=== PATIENT | male | born 1955 | race African-American/Black ===

== ENCOUNTER 2022-05-13 08:14 | Inpatient (IN) | payer MEDICARE ==
[~2022-05-13] VITALS: Ht 167.6 cm; Wt 65.8 kg
[2022-05-13 09:00] LABS: ABG BASE EXCESS -4.6 mmol/L; ABG HCO3 18.3 mmol/L; ABG PCO2 28.9 mmHg (35.0-45.0); ABG PH 7.419 (7.350-7.450); ABG SITE RIGHT RADIAL; COHb 0.9 % (0.5-1.5); MetHb 0.2 % (0.0-1.5); O2Hb 84.1 % (94.0-97.0); VENT MODE NC
[2022-05-13] MEDS ORDERED: levoFLOXacin 750MG/D5W 150 ML IV ONE ×2 (09:15→09:17)
[2022-05-13] MEDS ORDERED: IV NORMAL SALINE 1000 ML BAG IV ONE (09:45)
[2022-05-13 09:47] LABS: ALANINE AMINOTRANSFERASE 33 U/L (16-63); ALKALINE PHOSPHATASE 99 U/L (50-136); ASPARTATE AMINOTRANSFERASE 45 U/L (15-37); BILIRUBIN,DIRECT 0.9 mg/dL (0.0-0.2); BILIRUBIN,TOTAL 1.8 mg/dL (0.2-1.0); CARBON DIOXIDE 24 mmol/L (21-32); CHLORIDE 95 mmol/L (98-107); CREATININE 3.2 mg/dL (0.6-1.3); GLUCOSE 164 mg/dL (74-106); POTASSIUM 3.9 mmol/L (3.5-5.1); TOTAL PROTEIN, SERUM 7.6 g/dL (6.4-8.2); UREA NITROGEN, BLOOD 55 mg/dL (7-18)
[2022-05-13 09:54] LABS: HEMATOCRIT 45.2 % (36.7-47.1); MEAN CORPUSCULAR HEMOGLOBIN 25.6 uug (23.8-33.4); MEAN CORPUSCULAR VOLUME 79.2 fL (73.0-96.2); PLATELET COUNT (AUTO) 343 K/uL (152-348)
[2022-05-13 12:00] VITALS: BP 124/89
[2022-05-13] MEDS ORDERED: IPRATROPIUM BROMIDE 0.5 MG/2.5 ML NEBU NEB PRN (12:15)
[2022-05-13] MEDS ORDERED: ALBUTEROL SULFATE 2.5 MG/ 0.5 ML NEBU NEB PRN (12:15)
[2022-05-13] MEDS ORDERED: ZOLPIDEM 5 MG TABLET PO PRN (12:15)
[2022-05-13] MEDS ORDERED: HEPARIN SODIUM,PORCINE 5,000 UNITS/ML VIAL SQ SCH (12:30)
[2022-05-13] MEDS: PANTOPRAZOLE SODIUM 40 MG VIAL IV SCH (12:53)
[2022-05-13] MEDS: CEFEPIME HCL 1 G in IV DEXTROSE 5% 50 ML IV SCH (12:55)
[2022-05-13] MEDS: NICOTINE 7 MG/24HR PATCH TD SCH (12:55)
[2022-05-13] MEDS: ACETAMINOPHEN 325 MG TABLET PO PRN (13:11)
[2022-05-13] MEDS: AZITHROMYCIN IV 500 MG in IV DEXTROSE 5% 250 ML IV SCH (13:15)
[2022-05-13] MEDS: IV NS 1000 ML 1,000 ML IV PRN (13:40)
[2022-05-13] MEDS ORDERED: CEFEPIME HCL 1 G in IV DEXTROSE 5% 50 ML IV SCH (14:00)
[2022-05-13] MEDS ORDERED: FAMO-132 PO (14:14)
[2022-05-13] MEDS ORDERED: HYDR25TA4 PO (14:14)
[2022-05-13 16:00] VITALS: BP 117/69
[2022-05-13] MEDS: RIVAROXABAN 15 MG TABLET PO SCH (17:36)
[2022-05-13 20:00] VITALS: BP 111/75
[2022-05-14] VITALS (13 sets, daily range): BP systolic 110–141; BP diastolic 78–98
[2022-05-14] MEDS: CEFEPIME HCL 1 G in IV DEXTROSE 5% 50 ML IV SCH (01:02)
[2022-05-14] MEDS: IV NS 1000 ML 1,000 ML IV PRN (04:38)
[2022-05-14 06:08] LABS: ABG BASE EXCESS -6.7 mmol/L; ABG HCO3 16.3 mmol/L; ABG PCO2 27.3 mmHg (35.0-45.0); ABG PH 7.395 (7.350-7.450); ABG PO2 69.2 mmHg (75.0-100.0); ABG SITE LEFT RADIAL; ABG TOTAL HEMOGLOBIN 15.6 G/dL (13.5-18.0); COHb 0.6 % (0.5-1.5); MetHb 0.2 % (0.0-1.5); O2Hb 93.1 % (94.0-97.0)
[2022-05-14 07:14] LABS: CREATININE 3.7 mg/dL (0.6-1.3); MAGNESIUM 2.3 mg/dL (1.8-2.4); PHOSPHOROUS 6.2 mg/dL (2.5-4.9); POTASSIUM 4.1 mmol/L (3.5-5.1)
[2022-05-14 07:20] LABS: BILIRUBIN,DIRECT 1.4 mg/dL (0.0-0.2); BILIRUBIN,TOTAL 1.9 mg/dL (0.2-1.0); TOTAL PROTEIN, SERUM 7.1 g/dL (6.4-8.2)
[2022-05-14 07:21] LABS: THYROID STIMULATING HORMONE 0.451 mIU/mL (0.358-3.740)
[2022-05-14] MEDS: PANTOPRAZOLE SODIUM 40 MG VIAL IV SCH (08:14)
[2022-05-14] MEDS: NICOTINE 7 MG/24HR PATCH TD SCH (08:14)
[2022-05-14 08:21] LABS: MEAN CORPUSCULAR HEMOGLOBIN 25.6 uug (23.8-33.4); PLATELET COUNT (AUTO) 345 K/uL (152-348)
[2022-05-14] MEDS ORDERED: FUROSEMIDE 20 MG/2 ML VIAL IV SCH ×3 (09:30)
[2022-05-14] MEDS: CEFEPIME HCL 2 G in IV DEXTROSE 5% 100 ML IV SCH (11:11)
[2022-05-14] MEDS: AZITHROMYCIN IV 500 MG in IV DEXTROSE 5% 250 ML IV SCH (13:57)
[2022-05-14 14:49] LABS: *BILIRUBIN,URIN 1+ (NEGATIVE); *BLOOD, URINE 1+ (NEGATIVE); *CLARITY,URINE TURBID (CLEAR); *COLOR,URINE Brown (YELLOW); *KETONES,URINE TRACE (NEGATIVE); *UROBILINOGEN,URINE 0.2 E.U./dl (NORMAL); LEUKOCYTE ESTERASE ,URINE TRACE (NEGATIVE); NITRITE, URINE NEGATIVE (NEGATIVE); UGLUCOSE NEGATIVE (NEGATIVE)
[2022-05-14 14:57] LABS: *CREATININE,URINE 220.2 mg/dL (30-125)
[2022-05-14] MEDS ORDERED: FUROSEMIDE 40 MG/4 ML VIAL IV ONE ×3 (15:00→21:00)
[2022-05-14] MEDS ORDERED: methylPREDNISolone SOD SUCC 125 MG/2 ML VIAL IV ONE ×2 (15:00→17:45)
[2022-05-14 15:07] LABS: ABG HCO3 13.4 mmol/L; ABG PCO2 24.4 mmHg (35.0-45.0); ABG PH 7.357 (7.350-7.450); ABG PO2 71.2 mmHg (75.0-100.0); ABG SITE LEFT RADIAL; ABG TOTAL HEMOGLOBIN 14.9 G/dL (13.5-18.0); COHb 0.7 % (0.5-1.5); MetHb 0.3 % (0.0-1.5)
[2022-05-14 16:30] LABS: BACTERIA,URINE MA /HPF (NONE SEEN)
[2022-05-14 16:31] LABS: SQUAMOUS EPITHELIAL CELL,UR MANY /HPF (NONE SEEN)
[2022-05-14] MEDS: ALBUMIN HUMAN 25% 100 ML IV SCH ×2 (17:32→18:00)
[2022-05-14] MEDS ORDERED: VANCOMYCIN IV 1,000 MG in IV DEXTROSE 5% 250 ML IV ONE (18:00)
[2022-05-14] MEDS: RIVAROXABAN 15 MG TABLET PO SCH (18:24)
[2022-05-15] VITALS (24 sets, daily range): BP systolic 102–155; BP diastolic 45–100
[2022-05-15] MEDS: ALBUMIN HUMAN 25% 100 ML IV SCH ×2 (01:05→06:40)
[2022-05-15 05:07] LABS: HEMATOCRIT 41.6 % (36.7-47.1); MEAN CORPUSCULAR VOLUME 78.2 fL (73.0-96.2); PLATELET COUNT (AUTO) 178 K/uL (152-348)
[2022-05-15 05:23] LABS: MAGNESIUM 2.7 mg/dL (1.8-2.4); PHOSPHOROUS 6.9 mg/dL (2.5-4.9); POTASSIUM 4.4 mmol/L (3.5-5.1)
[2022-05-15] MEDS ORDERED: DILTIAZEM HCL 25 MG IV IV ONE (05:30)
[2022-05-15] MEDS ORDERED: AMIODARONE HCL IV 150 MG in IV DEXTROSE 5% 100 ML IV ONE (05:30)
[2022-05-15] MEDS ORDERED: AMIODARONE HCL 150 MG/3 ML VIAL IV ONE ×2 (05:46→05:47)
[2022-05-15] MEDS: AMIODARONE HCL IV 450 MG in IV DEXTROSE 5% 250 ML IV PRN ×2 (06:02→11:59)
[2022-05-15 06:04] LABS: BAND % (MANUAL) 2 % (0-10); LYMPHOCYTES % (MANUAL) 8 % (20-40); MONOCYTES % (MANUAL) 16 % (2-10)
[2022-05-15 06:05] LABS: NEUTROPHILS % (MANUAL) 74 % (42-75)
[2022-05-15 08:30] LABS: ABG BASE EXCESS -10.2 mmol/L; ABG HCO3 13.3 mmol/L; ABG PCO2 24.1 mmHg (35.0-45.0); ABG PO2 128.1 mmHg (75.0-100.0); ABG SITE LEFT RADIAL; ABG TOTAL HEMOGLOBIN 13.5 G/dL (13.5-18.0); COHb 0.2 % (0.5-1.5); MetHb 0.3 % (0.0-1.5); VENT MODE BIPAP
[2022-05-15] MEDS: DILTIAZEM HCL IV 125 MG in IV NORMAL SALINE 100 ML IV PRN (08:40)
[2022-05-15] MEDS: NICOTINE 7 MG/24HR PATCH TD SCH (09:00)
[2022-05-15] MEDS ORDERED: PANTOPRAZOLE SODIUM 40 MG TABLET.DR PO SCH (09:00)
[2022-05-15] MEDS ORDERED: VANCOMYCIN IV 500 MG in IV DEXTROSE 5% 100 ML IV PRN ×2 (11:45→14:45)
[2022-05-15] MEDS: CEFEPIME HCL 2 G in IV DEXTROSE 5% 100 ML IV SCH (11:54)
[2022-05-15] MEDS: AZITHROMYCIN IV 500 MG in IV DEXTROSE 5% 250 ML IV SCH (14:54)
[2022-05-15] MEDS ORDERED: VANCOMYCIN IV 500 MG in IV DEXTROSE 5% 100 ML IV ONE (16:00)
[2022-05-15] MEDS: NEPRO (VANILLA) 237 ML CAN PO SCH (16:54)
[2022-05-15] MEDS: RIVAROXABAN 15 MG TABLET PO SCH (17:06)
[2022-05-16] VITALS (24 sets, daily range): BP systolic 102–136; BP diastolic 58–88
[2022-05-16] MEDS: AMIODARONE HCL IV 450 MG in IV DEXTROSE 5% 250 ML IV PRN ×2
[2022-05-16 05:07] LABS: HEMATOCRIT 40.4 % (36.7-47.1); MEAN CORPUSCULAR HEMOGLOBIN 25.2 uug (23.8-33.4); MEAN CORPUSCULAR VOLUME 76.6 fL (73.0-96.2); PLATELET COUNT (AUTO) 83 K/uL (152-348)
[2022-05-16 05:40] LABS: BAND % (MANUAL) 6 % (0-10); LYMPHOCYTES % (MANUAL) 4 % (20-40); MONOCYTES % (MANUAL) 4 % (2-10); NEUTROPHILS % (MANUAL) 86 % (42-75)
[2022-05-16] MEDS: DILTIAZEM HCL IV 125 MG in IV NORMAL SALINE 100 ML IV PRN (08:03)
[2022-05-16 08:12] LABS: ABG BASE EXCESS -3.7 mmol/L; ABG HCO3 18.1 mmol/L; ABG PCO2 25.5 mmHg (35.0-45.0); ABG PO2 53.4 mmHg (75.0-100.0); ABG SITE LEFT RADIAL; ABG TOTAL HEMOGLOBIN 14.5 G/dL (13.5-18.0); COHb 0.7 % (0.5-1.5); MetHb 0.3 % (0.0-1.5); O2Hb 86.7 % (94.0-97.0); VENT MODE BIPAP; VT, ABG 489 mL
[2022-05-16] MEDS: NICOTINE 7 MG/24HR PATCH TD SCH (08:54)
[2022-05-16] MEDS: PANTOPRAZOLE SODIUM 40 MG VIAL IV SCH (08:54)
[2022-05-16] MEDS ORDERED: NOREPINEPHRINE BITARTRATE 8 MG in IV NORMAL SALINE 242 ML IV PRN ×2 (09:15→09:30)
[2022-05-16] MEDS ORDERED: NOREPINEPHRINE BITARTRATE 32 MG in IV NORMAL SALINE 218 ML IV PRN (09:30)
[2022-05-16] MEDS ORDERED: PROPOFOL 100 ML IV PRN (09:45)
[2022-05-16 11:10] LABS: POTASSIUM 4.7 mmol/L (3.5-5.1)
[2022-05-16 11:14] LABS: CREATININE 5.5 mg/dL (0.6-1.3); MAGNESIUM 3.1 mg/dL (1.8-2.4); PHOSPHOROUS 6.2 mg/dL (2.5-4.9)
[2022-05-16 11:54] LABS: ABG BASE EXCESS -8.8 mmol/L; ABG HCO3 18.6 mmol/L; ABG PCO2 45.6 mmHg (35.0-45.0); ABG PH 7.229 (7.350-7.450); ABG PO2 71.4 mmHg (75.0-100.0); ABG SITE LEFT RADIAL; ABG TOTAL HEMOGLOBIN 14.7 G/dL (13.5-18.0); COHb 0.4 % (0.5-1.5); MetHb 0.4 % (0.0-1.5); O2Hb 89.9 % (94.0-97.0); VENT MODE VENT - A/C; VT, ABG 500 mL
[2022-05-16] MEDS ORDERED: ROCURONIUM BROMIDE 50 MG/5 ML VIAL ONE ×2 (14:00)
[2022-05-16] MEDS: METRONIDAZOLE 500 MG TABLET PO SCH ×2 (14:00→22:20)
[2022-05-16] MEDS ORDERED: ETOMIDATE 20 MG/10 ML VIAL ONE ×2 (14:00)
[2022-05-16] MEDS ORDERED: EPINEPHRINE 1:10,000 1 MG/10 ML DISP.SYRIN IV ONE (14:19)
[2022-05-16] MEDS ORDERED: SODIUM BICARBONATE 8.4% 50 MEQ/50 ML DISP.SYRIN IV ONE (14:19)
[2022-05-16 14:29] LABS: VENT MODE, VBG VENT - A/C
[2022-05-16 14:39] LABS: HEMATOCRIT 44.2 % (36.7-47.1); MEAN CORPUSCULAR VOLUME 78.2 fL (73.0-96.2); PLATELET COUNT (AUTO) 76 K/uL (152-348)
[2022-05-16] MEDS ORDERED: IOHEXOL 350 100 ML INFUS..BTL ONE ×2 (14:43→14:45)
[2022-05-16] MEDS ORDERED: IV NORMAL SALINE 250 ML IV ONE (14:43)
[2022-05-16] MEDS ORDERED: SWABABLE VALVE TRANSFER SET EA MC ONE (14:43)
[2022-05-16 15:24] LABS: BILIRUBIN,DIRECT 1.5 mg/dL (0.0-0.2); BILIRUBIN,TOTAL 2.2 mg/dL (0.2-1.0); POTASSIUM 4.2 mmol/L (3.5-5.1); TOTAL PROTEIN, SERUM 7.4 g/dL (6.4-8.2)
[2022-05-16] MEDS: CEFEPIME HCL 2 G in IV DEXTROSE 5% 100 ML IV SCH (16:04)
[2022-05-16] MEDS: NEPRO (VANILLA) 237 ML CAN PO SCH ×2 (16:06)
[2022-05-16] MEDS: HEPARIN SODIUM,PORCINE 5,000 UNITS/ML VIAL SQ SCH ×2 (16:08→21:17)
[2022-05-16] MEDS: PROPOFOL 100 ML IV PRN (16:23)
[2022-05-16 17:58] LABS: BAND % (MANUAL) 6 % (0-10); LYMPHOCYTES % (MANUAL) 4 % (20-40); MONOCYTES % (MANUAL) 2 % (2-10); NEUTROPHILS % (MANUAL) 88 % (42-75)
[2022-05-16] MEDS ORDERED: VANCOMYCIN IV 1,000 MG in IV DEXTROSE 5% 250 ML IV SCH (18:00)
[2022-05-17] VITALS (23 sets, daily range): BP systolic 94–136; BP diastolic 49–70
[2022-05-17] MEDS: PROPOFOL 100 ML IV PRN ×4 (02:06→20:08)
[2022-05-17 04:54] LABS: HEMATOCRIT 37.9 % (36.7-47.1); MEAN CORPUSCULAR HEMOGLOBIN 24.8 uug (23.8-33.4); MEAN CORPUSCULAR VOLUME 76.5 fL (73.0-96.2); PLATELET COUNT (AUTO) 69 K/uL (152-348)
[2022-05-17 05:06] LABS: CREATININE 6.1 mg/dL (0.6-1.3); POTASSIUM 4.9 mmol/L (3.5-5.1)
[2022-05-17 05:11] LABS: MAGNESIUM 3.2 mg/dL (1.8-2.4); PHOSPHOROUS 7.5 mg/dL (2.5-4.9)
[2022-05-17 05:24] LABS: BAND % (MANUAL) 4 % (0-10); LYMPHOCYTES % (MANUAL) 4 % (20-40); MONOCYTES % (MANUAL) 3 % (2-10)
[2022-05-17 05:25] LABS: NEUTROPHILS % (MANUAL) 89 % (42-75)
[2022-05-17] MEDS: METRONIDAZOLE 500 MG TABLET PO SCH ×3 (06:03→21:13)
[2022-05-17 07:49] LABS: ABG BASE EXCESS -3.4 mmol/L; ABG HCO3 20.6 mmol/L; ABG PCO2 34.5 mmHg (35.0-45.0); ABG PH 7.393 (7.350-7.450); ABG SITE LEFT RADIAL; ABG TOTAL HEMOGLOBIN 16.6 G/dL (13.5-18.0); COHb 0.8 % (0.5-1.5); MetHb 0.4 % (0.0-1.5); O2Hb 90.1 % (94.0-97.0); VENT MODE VENT - A/C; VT, ABG 500 mL
[2022-05-17 08:07] LABS: HEPATITIS B SURFACE AG Negative (Negative)
[2022-05-17] MEDS: NICOTINE 7 MG/24HR PATCH TD SCH (08:07)
[2022-05-17] MEDS: PANTOPRAZOLE SODIUM 40 MG VIAL IV SCH (08:07)
[2022-05-17] MEDS: HEPARIN SODIUM,PORCINE 5,000 UNITS/ML VIAL SQ SCH ×2 (08:08→21:00)
[2022-05-17] MEDS: ACETAMINOPHEN 325 MG TABLET PO PRN ×2 (08:22→14:31)
[2022-05-17] MEDS: NEPRO (VANILLA) 237 ML CAN PO SCH ×2 (09:00→15:41)
[2022-05-17] MEDS ORDERED: NOREPINEPHRINE BITARTRATE 32 MG in IV NORMAL SALINE 218 ML IV PRN (09:45)
[2022-05-17 11:15] LABS: BILIRUBIN,DIRECT 0.6 mg/dL (0.0-0.2); BILIRUBIN,TOTAL 2.1 mg/dL (0.2-1.0); TOTAL PROTEIN, SERUM 6.4 g/dL (6.4-8.2)
[2022-05-17] MEDS ORDERED: LACTULOSE 20 G/30 ML LIQUID UDC PR SCH (13:00)
[2022-05-17] MEDS ORDERED: LACTULOSE 20 G/30 ML LIQUID UDC PO SCH (13:00)
[2022-05-17] MEDS ORDERED: VANCOMYCIN IV 500 MG in IV DEXTROSE 5% 100 ML IV ONE (13:00)
[2022-05-17] MEDS: AZITHROMYCIN IV 500 MG in IV DEXTROSE 5% 250 ML IV SCH (13:19)
[2022-05-17] MEDS: LACTULOSE 20 G/30 ML LIQUID UDC PO SCH ×2 (13:58→21:13)
[2022-05-17] MEDS: ALBUTEROL SULFATE 2.5 MG/ 0.5 ML NEBU NEB SCH ×2 (14:32→20:21)
[2022-05-17] MEDS: IPRATROPIUM BROMIDE 0.5 MG/2.5 ML NEBU NEB SCH ×2 (14:33→20:20)
[2022-05-17] MEDS: CEFEPIME HCL 2 G in IV DEXTROSE 5% 100 ML IV SCH (15:41)
[2022-05-18] VITALS (25 sets, daily range): BP systolic 96–115; BP diastolic 49–88
[2022-05-18] MEDS: ALBUTEROL SULFATE 2.5 MG/ 0.5 ML NEBU NEB SCH ×4 (00:31→19:48)
[2022-05-18] MEDS: IPRATROPIUM BROMIDE 0.5 MG/2.5 ML NEBU NEB SCH ×4 (00:31→19:48)
[2022-05-18] MEDS: PROPOFOL 100 ML IV PRN ×3 (02:50→16:47)
[2022-05-18 04:43] LABS: MEAN CORPUSCULAR HEMOGLOBIN 25.1 uug (23.8-33.4); PLATELET COUNT (AUTO) 80 K/uL (152-348)
[2022-05-18 04:45] LABS: HEMATOCRIT 38.4 % (36.7-47.1); MEAN CORPUSCULAR VOLUME 76.3 fL (73.0-96.2)
[2022-05-18 05:10] LABS: CREATININE 6.4 mg/dL (0.6-1.3); MAGNESIUM 3.1 mg/dL (1.8-2.4)
[2022-05-18 05:51] LABS: PHOSPHOROUS 12.3 mg/dL (2.5-4.9)
[2022-05-18 06:11] LABS: BAND % (MANUAL) 1 % (0-10); LYMPHOCYTES % (MANUAL) 10 % (20-40); MONOCYTES % (MANUAL) 2 % (2-10); NEUTROPHILS % (MANUAL) 87 % (42-75)
[2022-05-18] MEDS: LACTULOSE 20 G/30 ML LIQUID UDC PO SCH ×3 (06:18→21:50)
[2022-05-18] MEDS: METRONIDAZOLE 500 MG TABLET PO SCH ×3 (06:18→21:50)
[2022-05-18 06:34] LABS: ABG BASE EXCESS -4.5 mmol/L; ABG PCO2 45.9 mmHg (35.0-45.0); ABG PH 7.298 (7.350-7.450); ABG PO2 121.1 mmHg (75.0-100.0); ABG SITE RIGHT RADIAL; ABG TOTAL HEMOGLOBIN 12.9 G/dL (13.5-18.0); COHb 0.3 % (0.5-1.5); MetHb 0.4 % (0.0-1.5); O2Hb 97.4 % (94.0-97.0); VENT MODE VENT - A/C; VT, ABG 450 mL
[2022-05-18] MEDS: PANTOPRAZOLE SODIUM 40 MG VIAL IV SCH (08:39)
[2022-05-18] MEDS: NICOTINE 7 MG/24HR PATCH TD SCH (08:39)
[2022-05-18] MEDS: HEPARIN SODIUM,PORCINE 5,000 UNITS/ML VIAL SQ SCH (08:43)
[2022-05-18] MEDS: NEPRO (VANILLA) 237 ML CAN PO SCH ×2 (08:46→16:26)
[2022-05-18] MEDS: AZITHROMYCIN IV 500 MG in IV DEXTROSE 5% 250 ML IV SCH (11:52)
[2022-05-18] MEDS: CEFEPIME HCL 1 G in IV DEXTROSE 5% 50 ML IV SCH (16:26)
[2022-05-18] MEDS: PRECEDEX 400 MCG/100 ML BOTTLE 100 ML IV PRN (21:01)
[2022-05-18] MEDS: HYDROCODONE/APAP 10-325 MG TABLET PO PRN (21:50)
[2022-05-19] VITALS (24 sets, daily range): BP systolic 90–151; BP diastolic 47–96
[2022-05-19] MEDS: ALBUTEROL SULFATE 2.5 MG/ 0.5 ML NEBU NEB SCH ×4 (00:37→19:26)
[2022-05-19] MEDS: IPRATROPIUM BROMIDE 0.5 MG/2.5 ML NEBU NEB SCH ×4 (00:37→19:26)
[2022-05-19] MEDS: PRECEDEX 400 MCG/100 ML BOTTLE 100 ML IV PRN (03:20)
[2022-05-19] MEDS: LACTULOSE 20 G/30 ML LIQUID UDC PO SCH ×3 (05:21→21:31)
[2022-05-19] MEDS: METRONIDAZOLE 500 MG TABLET PO SCH ×2 (05:21→14:03)
[2022-05-19 08:09] LABS: ABG BASE EXCESS 0.7 mmol/L; ABG HCO3 24.4 mmol/L; ABG PCO2 36.4 mmHg (35.0-45.0); ABG PH 7.445 (7.350-7.450); ABG PO2 205.9 mmHg (75.0-100.0); ABG SITE RIGHT RADIAL; ABG TOTAL HEMOGLOBIN 12.4 G/dL (13.5-18.0); COHb 0.3 % (0.5-1.5); MetHb 0.2 % (0.0-1.5); O2Hb 98.9 % (94.0-97.0)
[2022-05-19] MEDS: NICOTINE 7 MG/24HR PATCH TD SCH (08:48)
[2022-05-19] MEDS: NEPRO (VANILLA) 237 ML CAN PO SCH ×2 (08:49→17:00)
[2022-05-19] MEDS: PANTOPRAZOLE SODIUM 40 MG VIAL IV SCH (08:49)
[2022-05-19] MEDS: AZITHROMYCIN IV 500 MG in IV DEXTROSE 5% 250 ML IV SCH (12:23)
[2022-05-19 12:52] LABS: CREATININE 6.4 mg/dL (0.6-1.3); POTASSIUM 5.5 mmol/L (3.5-5.1)
[2022-05-19] MEDS: CEFEPIME HCL 1 G in IV DEXTROSE 5% 50 ML IV SCH (17:52)
[2022-05-19] MEDS ORDERED: VANCOMYCIN IV 500 MG in IV DEXTROSE 5% 100 ML IV ONE (18:00)
[2022-05-20] VITALS (24 sets, daily range): BP systolic 111–168; BP diastolic 59–126
[2022-05-20] MEDS: IPRATROPIUM BROMIDE 0.5 MG/2.5 ML NEBU NEB SCH ×4 (00:44→19:39)
[2022-05-20] MEDS: ALBUTEROL SULFATE 2.5 MG/ 0.5 ML NEBU NEB SCH ×4 (00:44→19:39)
[2022-05-20 05:06] LABS: MEAN CORPUSCULAR HEMOGLOBIN 24.7 uug (23.8-33.4); MEAN CORPUSCULAR VOLUME 75.7 fL (73.0-96.2); PLATELET COUNT (AUTO) 137 K/uL (152-348)
[2022-05-20 05:29] LABS: BILIRUBIN,TOTAL 1.5 mg/dL (0.2-1.0); CREATININE 5.4 mg/dL (0.6-1.3); MAGNESIUM 2.8 mg/dL (1.8-2.4); POTASSIUM 4.8 mmol/L (3.5-5.1); TOTAL PROTEIN, SERUM 7.4 g/dL (6.4-8.2)
[2022-05-20 05:54] LABS: PHOSPHOROUS 8.8 mg/dL (2.5-4.9)
[2022-05-20] MEDS: LACTULOSE 20 G/30 ML LIQUID UDC PO SCH ×4 (06:00→19:53)
[2022-05-20] MEDS: NEPRO (VANILLA) 237 ML CAN PO SCH ×2 (09:00→17:00)
[2022-05-20] MEDS: PANTOPRAZOLE SODIUM 40 MG VIAL IV SCH (09:05)
[2022-05-20] MEDS: NICOTINE 7 MG/24HR PATCH TD SCH (09:08)
[2022-05-20] MEDS: AZITHROMYCIN IV 500 MG in IV DEXTROSE 5% 250 ML IV SCH (12:47)
[2022-05-20] MEDS ORDERED: ALTEPLASE 2 MG VIAL XX ONE (17:00)
[2022-05-20] MEDS: CEFEPIME HCL 1 G in IV DEXTROSE 5% 50 ML IV SCH (17:07)
[2022-05-20 17:09] LABS: BAND % (MANUAL) 4 % (0-10); LYMPHOCYTES % (MANUAL) 6 % (20-40); MONOCYTES % (MANUAL) 2 % (2-10)
[2022-05-20 17:10] LABS: NEUTROPHILS % (MANUAL) 88 % (42-75)
[2022-05-21] VITALS (25 sets, daily range): BP systolic 107–181; BP diastolic 53–89
[2022-05-21] MEDS: ALBUTEROL SULFATE 2.5 MG/ 0.5 ML NEBU NEB SCH ×4 (00:45→19:32)
[2022-05-21] MEDS: IPRATROPIUM BROMIDE 0.5 MG/2.5 ML NEBU NEB SCH ×4 (00:45→19:33)
[2022-05-21] MEDS: hydrALAZINE HCL 20 MG/1 ML VIAL IV PRN (03:23)
[2022-05-21 04:58] LABS: HEMATOCRIT 32.5 % (36.7-47.1); MEAN CORPUSCULAR HEMOGLOBIN 24.8 uug (23.8-33.4); MEAN CORPUSCULAR VOLUME 75.6 fL (73.0-96.2); PLATELET COUNT (AUTO) 258 K/uL (152-348)
[2022-05-21 05:44] LABS: BILIRUBIN,TOTAL 1.3 mg/dL (0.2-1.0); CREATININE 6.1 mg/dL (0.6-1.3); MAGNESIUM 2.8 mg/dL (1.8-2.4); POTASSIUM 5.2 mmol/L (3.5-5.1); TOTAL PROTEIN, SERUM 7.4 g/dL (6.4-8.2)
[2022-05-21] MEDS: NEPRO (VANILLA) 237 ML CAN PO SCH ×2 (09:00→17:00)
[2022-05-21] MEDS: PANTOPRAZOLE SODIUM 40 MG VIAL IV SCH (09:19)
[2022-05-21] MEDS: NICOTINE 7 MG/24HR PATCH TD SCH (09:19)
[2022-05-21] MEDS: AZITHROMYCIN IV 500 MG in IV DEXTROSE 5% 250 ML IV SCH (11:36)
[2022-05-21] MEDS: LACTULOSE 20 G/30 ML LIQUID UDC PO SCH ×2 (15:29→21:53)
[2022-05-21] MEDS: CEFEPIME HCL 1 G in IV DEXTROSE 5% 50 ML IV SCH (15:30)
[2022-05-21 21:03] LABS: CREATININE 4.6 mg/dL (0.6-1.3); POTASSIUM 4.9 mmol/L (3.5-5.1)
[2022-05-22] VITALS (25 sets, daily range): BP systolic 111–156; BP diastolic 51–82
[2022-05-22] MEDS: ALBUTEROL SULFATE 2.5 MG/ 0.5 ML NEBU NEB SCH ×2 (00:44→08:00)
[2022-05-22] MEDS: IPRATROPIUM BROMIDE 0.5 MG/2.5 ML NEBU NEB SCH ×2 (00:44→08:00)
[2022-05-22 05:08] LABS: HEMATOCRIT 33.4 % (36.7-47.1); MEAN CORPUSCULAR VOLUME 75.7 fL (73.0-96.2); PLATELET COUNT (AUTO) 475 K/uL (152-348)
[2022-05-22 05:43] LABS: BILIRUBIN,TOTAL 1.1 mg/dL (0.2-1.0); CREATININE 6.1 mg/dL (0.6-1.3); POTASSIUM 4.8 mmol/L (3.5-5.1); TOTAL PROTEIN, SERUM 8.1 g/dL (6.4-8.2)
[2022-05-22 05:49] LABS: PHOSPHOROUS 12.7 mg/dL (2.5-4.9)
[2022-05-22] MEDS: LACTULOSE 20 G/30 ML LIQUID UDC PO SCH ×3 (05:54→21:32)
[2022-05-22] MEDS: PANTOPRAZOLE SODIUM 40 MG VIAL IV SCH (08:44)
[2022-05-22] MEDS: NICOTINE 7 MG/24HR PATCH TD SCH (08:46)
[2022-05-22] MEDS: NEPRO (VANILLA) 237 ML CAN PO SCH (08:47)
[2022-05-22] MEDS: ACETAMINOPHEN 325 MG TABLET PO PRN ×2 (08:55→19:39)
[2022-05-22] MEDS: AZITHROMYCIN 250 MG TABLET PO SCH (12:11)
[2022-05-22] MEDS: hydrALAZINE HCL 20 MG/1 ML VIAL IV PRN (15:57)
[2022-05-22] MEDS: CEFEPIME HCL 1 G in IV DEXTROSE 5% 50 ML IV SCH (16:30)
[2022-05-22] MEDS: NEPRO 1000 ML GT PRN (23:10)
[2022-05-23] VITALS (28 sets, daily range): BP systolic 87–142; BP diastolic 55–78
[2022-05-23] MEDS: LACTULOSE 20 G/30 ML LIQUID UDC PO SCH ×3 (05:11→23:27)
[2022-05-23 08:49] LABS: HEMATOCRIT 30.3 % (36.7-47.1); MEAN CORPUSCULAR HEMOGLOBIN 24.9 uug (23.8-33.4); MEAN CORPUSCULAR VOLUME 76.2 fL (73.0-96.2); PLATELET COUNT (AUTO) 761 K/uL (152-348)
[2022-05-23] MEDS: NICOTINE 7 MG/24HR PATCH TD SCH (09:04)
[2022-05-23] MEDS: PANTOPRAZOLE SODIUM 40 MG VIAL IV SCH (09:04)
[2022-05-23 09:14] LABS: POTASSIUM 4.5 mmol/L (3.5-5.1)
[2022-05-23] MEDS: SEVELAMER CARBONATE 800 MG POWD.PACK GT SCH ×3 (09:19→17:25)
[2022-05-23] MEDS: ACETAMINOPHEN 325 MG TABLET PO PRN ×2 (09:21→15:57)
[2022-05-23 09:23] LABS: CREATININE 9.4 mg/dL (0.6-1.3)
[2022-05-23] MEDS: HYDROCODONE/APAP 10-325 MG TABLET PO PRN (11:01)
[2022-05-23] MEDS: AZITHROMYCIN 250 MG TABLET PO SCH (11:43)
[2022-05-23] MEDS ORDERED: NOREPINEPHRINE BITARTRATE 8 MG in IV NORMAL SALINE 242 ML IV PRN (13:30)
[2022-05-23] MEDS: CEFEPIME HCL 1 G in IV DEXTROSE 5% 50 ML IV SCH (15:58)
[2022-05-24] VITALS (24 sets, daily range): BP systolic 85–121; BP diastolic 51–81
[2022-05-24] MEDS: ONDANSETRON 4 MG/2 ML VIAL IV PRN (05:09)
[2022-05-24 05:41] LABS: HEMATOCRIT 29.5 % (36.7-47.1); MEAN CORPUSCULAR VOLUME 76.8 fL (73.0-96.2); PLATELET COUNT (AUTO) 825 K/uL (152-348)
[2022-05-24 05:53] LABS: POTASSIUM 3.9 mmol/L (3.5-5.1)
[2022-05-24] MEDS: LACTULOSE 20 G/30 ML LIQUID UDC PO SCH ×3 (06:00→22:16)
[2022-05-24 06:07] LABS: CREATININE 7.7 mg/dL (0.6-1.3)
[2022-05-24] MEDS: PANTOPRAZOLE ORAL SUSPENSION 40 MG SUSPDR.PKT GT SCH (09:17)
[2022-05-24] MEDS: SEVELAMER CARBONATE 800 MG POWD.PACK GT SCH ×3 (09:18→16:40)
[2022-05-24] MEDS: NICOTINE 7 MG/24HR PATCH TD SCH (09:19)
[2022-05-24] MEDS: ACETAMINOPHEN 325 MG TABLET PO PRN (12:06)
[2022-05-24] MEDS ORDERED: ALBUMIN HUMAN 25% 100 ML IV PRN (15:15)
[2022-05-24] MEDS: HYDROCODONE/APAP 10-325 MG TABLET PO PRN ×2 (16:38→23:42)
[2022-05-24] MEDS: CEFEPIME HCL 1 G in IV DEXTROSE 5% 50 ML IV SCH (16:38)
[2022-05-25] VITALS (24 sets, daily range): BP systolic 90–173; BP diastolic 48–81
[2022-05-25 05:25] LABS: HEMATOCRIT 26.2 % (36.7-47.1); MEAN CORPUSCULAR HEMOGLOBIN 24.3 uug (23.8-33.4); MEAN CORPUSCULAR VOLUME 77.3 fL (73.0-96.2); PLATELET COUNT (AUTO) 705 K/uL (152-348)
[2022-05-25 05:41] LABS: CREATININE 6.4 mg/dL (0.6-1.3); POTASSIUM 3.5 mmol/L (3.5-5.1)
[2022-05-25] MEDS: LACTULOSE 20 G/30 ML LIQUID UDC PO SCH ×3 (06:00→20:58)
[2022-05-25] MEDS: SEVELAMER CARBONATE 800 MG POWD.PACK GT SCH ×3 (10:10→16:33)
[2022-05-25] MEDS: PANTOPRAZOLE ORAL SUSPENSION 40 MG SUSPDR.PKT GT SCH (10:10)
[2022-05-25] MEDS: NICOTINE 7 MG/24HR PATCH TD SCH (10:11)
[2022-05-25] MEDS: CEFEPIME HCL 1 G in IV DEXTROSE 5% 50 ML IV SCH (16:32)
[2022-05-25] MEDS: HYDROCODONE/APAP 10-325 MG TABLET PO PRN (17:50)
[2022-05-26] VITALS (23 sets, daily range): BP systolic 111–166; BP diastolic 59–93
[2022-05-26] MEDS: HYDROCODONE/APAP 10-325 MG TABLET PO PRN (02:33)
[2022-05-26] MEDS: LACTULOSE 20 G/30 ML LIQUID UDC PO SCH ×3 (05:36→22:18)
[2022-05-26 06:58] LABS: HEMATOCRIT 27.3 % (36.7-47.1); MEAN CORPUSCULAR HEMOGLOBIN 25.7 uug (23.8-33.4); MEAN CORPUSCULAR VOLUME 77.4 fL (73.0-96.2); PLATELET COUNT (AUTO) 761 K/uL (152-348)
[2022-05-26 07:17] LABS: CREATININE 6.5 mg/dL (0.6-1.3); POTASSIUM 3.7 mmol/L (3.5-5.1)
[2022-05-26] MEDS: PANTOPRAZOLE ORAL SUSPENSION 40 MG SUSPDR.PKT GT SCH (08:51)
[2022-05-26] MEDS: SEVELAMER CARBONATE 800 MG POWD.PACK GT SCH ×3 (08:51→15:39)
[2022-05-26] MEDS: NICOTINE 7 MG/24HR PATCH TD SCH (08:51)
[2022-05-26] MEDS ORDERED: SIMETHICONE 40 MG/0.6 ML, 30ML BOTTLE NG PRN (12:00)
[2022-05-26] MEDS ORDERED: SIMETHICONE 80 MG TAB.CHEW NG PRN (12:15)
[2022-05-26] MEDS: NUTRISOURCE FIBER 4 GM PACKET GT SCH ×2 (13:00→16:11)
[2022-05-26] MEDS: CEFEPIME HCL 1 G in IV DEXTROSE 5% 50 ML IV SCH (15:39)
[2022-05-26] MEDS ORDERED: TRAZODONE 50 MG TABLET ONE (22:12)
[2022-05-26] MEDS: TRAZODONE 100 MG TABLET GT SCH (22:18)
[2022-05-27] VITALS (15 sets, daily range): BP systolic 110–165; BP diastolic 59–87
[2022-05-27] MEDS: LACTULOSE 20 G/30 ML LIQUID UDC PO SCH ×3 (05:21→20:42)
[2022-05-27 06:25] LABS: MAGNESIUM 3.3 mg/dL (1.8-2.4)
[2022-05-27 06:29] LABS: PHOSPHOROUS 13.1 mg/dL (2.5-4.9)
[2022-05-27] MEDS: PANTOPRAZOLE ORAL SUSPENSION 40 MG SUSPDR.PKT GT SCH (08:39)
[2022-05-27] MEDS: SEVELAMER CARBONATE 800 MG POWD.PACK GT SCH ×3 (08:40→16:51)
[2022-05-27] MEDS: NUTRISOURCE FIBER 4 GM PACKET GT SCH ×3 (08:42→17:01)
[2022-05-27] MEDS: LIPASE/PROTEASE/AMYLASE 4200 UNITS CAPSULE.DR GT SCH ×3 (12:09→16:52)
[2022-05-27] MEDS: NICOTINE 7 MG/24HR PATCH TD SCH (12:09)
[2022-05-27] MEDS ORDERED: SEVELAMER CARBONATE 800 MG POWD.PACK GT SCH (12:15)
[2022-05-27] MEDS: TRAZODONE 100 MG TABLET GT SCH (20:42)
[2022-05-27] MEDS: HYDROCODONE/APAP 10-325 MG TABLET PO PRN (21:28)
[2022-05-28 00:19] VITALS: BP 108/70
[2022-05-28 04:15] VITALS: BP 105/65
[2022-05-28] MEDS: LACTULOSE 20 G/30 ML LIQUID UDC PO SCH ×3 (06:05→21:04)
[2022-05-28 07:02] LABS: HEMATOCRIT 27.1 % (36.7-47.1); MEAN CORPUSCULAR HEMOGLOBIN 25.6 uug (23.8-33.4); MEAN CORPUSCULAR VOLUME 77.3 fL (73.0-96.2); PLATELET COUNT (AUTO) 779 K/uL (152-348)
[2022-05-28 07:37] LABS: CREATININE 7.4 mg/dL (0.6-1.3); POTASSIUM 4.4 mmol/L (3.5-5.1)
[2022-05-28] MEDS: PANTOPRAZOLE ORAL SUSPENSION 40 MG SUSPDR.PKT GT SCH (08:48)
[2022-05-28] MEDS: LIPASE/PROTEASE/AMYLASE 4200 UNITS CAPSULE.DR GT SCH ×3 (08:49→17:02)
[2022-05-28] MEDS: NICOTINE 7 MG/24HR PATCH TD SCH (08:49)
[2022-05-28] MEDS: NUTRISOURCE FIBER 4 GM PACKET GT SCH ×3 (08:50→17:06)
[2022-05-28] MEDS: SEVELAMER CARBONATE 800 MG POWD.PACK GT SCH ×3 (08:50→17:06)
[2022-05-28 11:51] VITALS: BP 121/81
[2022-05-28 15:47] VITALS: BP 126/80
[2022-05-28] MEDS: HYDROCODONE/APAP 10-325 MG TABLET PO PRN ×2 (17:02→21:04)
[2022-05-28 20:00] VITALS: BP 145/82
[2022-05-28] MEDS: TRAZODONE 100 MG TABLET GT SCH (21:04)
[2022-05-29] VITALS: BP 138/78
[2022-05-29 04:00] VITALS: BP 140/80
[2022-05-29] MEDS: LACTULOSE 20 G/30 ML LIQUID UDC PO SCH ×3 (06:17→21:27)
[2022-05-29 06:55] LABS: HEMATOCRIT 25.8 % (36.7-47.1); MEAN CORPUSCULAR HEMOGLOBIN 25.2 uug (23.8-33.4); MEAN CORPUSCULAR VOLUME 77.1 fL (73.0-96.2); PLATELET COUNT (AUTO) 797 K/uL (152-348)
[2022-05-29 07:23] LABS: POTASSIUM 5.9 mmol/L (3.5-5.1)
[2022-05-29 08:22] LABS: CREATININE 8.7 mg/dL (0.6-1.3)
[2022-05-29] MEDS: NICOTINE 7 MG/24HR PATCH TD SCH (08:45)
[2022-05-29] MEDS: PANTOPRAZOLE ORAL SUSPENSION 40 MG SUSPDR.PKT GT SCH (08:45)
[2022-05-29] MEDS: LIPASE/PROTEASE/AMYLASE 4200 UNITS CAPSULE.DR GT SCH ×3 (08:46→17:59)
[2022-05-29] MEDS: SEVELAMER CARBONATE 800 MG POWD.PACK GT SCH ×3 (09:00→17:59)
[2022-05-29] MEDS: NUTRISOURCE FIBER 4 GM PACKET GT SCH ×3 (09:01→18:00)
[2022-05-29] MEDS: NEPRO 1000 ML GT PRN (11:12)
[2022-05-29 11:32] VITALS: BP 131/80
[2022-05-29 15:37] VITALS: BP 116/71
[2022-05-29 20:00] VITALS: BP 121/79
[2022-05-29] MEDS: TRAZODONE 100 MG TABLET GT SCH (21:27)
[2022-05-30] VITALS: BP 118/69
[2022-05-30 04:00] VITALS: BP 149/79
[2022-05-30] MEDS: LACTULOSE 20 G/30 ML LIQUID UDC PO SCH (05:55)
[2022-05-30] MEDS: SEVELAMER CARBONATE 800 MG POWD.PACK GT SCH ×3 (06:36→17:12)
[2022-05-30 07:08] LABS: HEMATOCRIT 25.7 % (36.7-47.1); MEAN CORPUSCULAR HEMOGLOBIN 25.2 uug (23.8-33.4); MEAN CORPUSCULAR VOLUME 77.3 fL (73.0-96.2); PLATELET COUNT (AUTO) 715 K/uL (152-348)
[2022-05-30 07:28] LABS: CREATININE 6.5 mg/dL (0.6-1.3); POTASSIUM 4.3 mmol/L (3.5-5.1)
[2022-05-30] MEDS ORDERED: EPOETIN ALFA 10,000 UNITS/ML VIAL SQ ONE (09:00)
[2022-05-30] MEDS ORDERED: EPOETIN ALFA-EPBX 10,000 UNIT/ML VIAL SQ ONE (09:00)
[2022-05-30] MEDS: LIPASE/PROTEASE/AMYLASE 4200 UNITS CAPSULE.DR GT SCH ×3 (09:05→17:12)
[2022-05-30] MEDS: PANTOPRAZOLE ORAL SUSPENSION 40 MG SUSPDR.PKT GT SCH (09:05)
[2022-05-30] MEDS: NICOTINE 7 MG/24HR PATCH TD SCH (09:06)
[2022-05-30] MEDS: NUTRISOURCE FIBER 4 GM PACKET GT SCH ×3 (09:10→17:12)
[2022-05-30 11:22] VITALS: BP 131/81
[2022-05-30 15:28] VITALS: BP 127/75
[2022-05-30 20:00] VITALS: BP 122/86
[2022-05-30] MEDS: TRAZODONE 100 MG TABLET GT SCH (20:40)
[2022-05-31] VITALS: BP 127/77
[2022-05-31 04:17] VITALS: BP 120/78
[2022-05-31 06:31] LABS: HEMATOCRIT 26.2 % (36.7-47.1); MEAN CORPUSCULAR HEMOGLOBIN 24.9 uug (23.8-33.4); MEAN CORPUSCULAR VOLUME 77.2 fL (73.0-96.2); PLATELET COUNT (AUTO) 694 K/uL (152-348)
[2022-05-31] MEDS: SEVELAMER CARBONATE 800 MG POWD.PACK GT SCH ×3 (06:36→16:14)
[2022-05-31 07:12] LABS: CREATININE 7.4 mg/dL (0.6-1.3); POTASSIUM 4.6 mmol/L (3.5-5.1)
[2022-05-31 07:40] LABS: MAGNESIUM 3.2 mg/dL (1.8-2.4)
[2022-05-31] MEDS ORDERED: CEFAZOLIN 1 G VIAL ONE ×2 (08:00)
[2022-05-31] MEDS ORDERED: ETOMIDATE 20 MG/10 ML VIAL ONE (08:00)
[2022-05-31] MEDS ORDERED: LIDOCAINE-MPF 2% 5 ML VIAL ONE (08:00)
[2022-05-31] MEDS ORDERED: PROPOFOL 200 MG/20 ML BOTTLE ONE (08:00)
[2022-05-31] MEDS ORDERED: KETAMINE HCL 500 MG/10 ML INJ ONE (08:15)
[2022-05-31] MEDS ORDERED: CALCIUM CHLORIDE 1 GM/10 ML DISP.SYRIN IVP ONE (08:15)
[2022-05-31 08:20] LABS: PHOSPHOROUS 9.2 mg/dL (2.5-4.9)
[2022-05-31] MEDS: NUTRISOURCE FIBER 4 GM PACKET GT SCH ×3 (09:00→16:16)
[2022-05-31] MEDS: PANTOPRAZOLE ORAL SUSPENSION 40 MG SUSPDR.PKT GT SCH (09:00)
[2022-05-31] MEDS: LIPASE/PROTEASE/AMYLASE 4200 UNITS CAPSULE.DR GT SCH ×3 (09:00→16:14)
[2022-05-31 09:31] VITALS: BP 130/82
[2022-05-31] MEDS: NICOTINE 7 MG/24HR PATCH TD SCH (09:58)
[2022-05-31 11:33] VITALS: BP 116/80
[2022-05-31 20:00] VITALS: BP 94/55
[2022-05-31] MEDS ORDERED: VANCOMYCIN IV 1,000 MG in IV DEXTROSE 5% 250 ML IV ONE (20:00)
[2022-05-31] MEDS: TRAZODONE 100 MG TABLET GT SCH (20:23)
[2022-06-01] VITALS: BP 103/66
[2022-06-01] MEDS: HYDROCODONE/APAP 10-325 MG TABLET PO PRN (00:19)
[2022-06-01 05:10] VITALS: BP 105/68
[2022-06-01] MEDS: SEVELAMER CARBONATE 800 MG POWD.PACK GT SCH ×3 (06:57→16:34)
[2022-06-01 06:58] LABS: HEMATOCRIT 25.3 % (36.7-47.1); MEAN CORPUSCULAR HEMOGLOBIN 25.1 uug (23.8-33.4); MEAN CORPUSCULAR VOLUME 78.1 fL (73.0-96.2); PLATELET COUNT (AUTO) 627 K/uL (152-348)
[2022-06-01 07:15] LABS: CREATININE 5.7 mg/dL (0.6-1.3); MAGNESIUM 2.8 mg/dL (1.8-2.4); POTASSIUM 4.3 mmol/L (3.5-5.1)
[2022-06-01 07:48] LABS: PHOSPHOROUS 9.4 mg/dL (2.5-4.9)
[2022-06-01] MEDS: NUTRISOURCE FIBER 4 GM PACKET GT SCH ×3 (08:51→16:36)
[2022-06-01] MEDS: LIPASE/PROTEASE/AMYLASE 4200 UNITS CAPSULE.DR GT SCH ×3 (08:52→16:35)
[2022-06-01] MEDS: PANTOPRAZOLE ORAL SUSPENSION 40 MG SUSPDR.PKT GT SCH (08:52)
[2022-06-01 12:03] VITALS: BP 140/88
[2022-06-01] MEDS ORDERED: VANCOMYCIN IV 500 MG in IV DEXTROSE 5% 100 ML IV PRN (14:15)
[2022-06-01 15:57] VITALS: BP 135/78
[2022-06-01] MEDS: NICOTINE 7 MG/24HR PATCH TD SCH (16:34)
[2022-06-01] MEDS: NEPRO 1000 ML GT PRN (17:25)
[2022-06-01 20:00] VITALS: BP 137/85
[2022-06-01] MEDS: TRAZODONE 100 MG TABLET GT SCH (20:55)
[2022-06-02] VITALS: BP 128/78
[2022-06-02] MEDS: HYDROCODONE/APAP 10-325 MG TABLET PO PRN ×2 (00:14→21:25)
[2022-06-02 04:00] VITALS: BP 125/72
[2022-06-02] MEDS: SEVELAMER CARBONATE 800 MG POWD.PACK GT SCH ×3 (06:42→16:55)
[2022-06-02 07:23] LABS: HEMATOCRIT 23.7 % (36.7-47.1); MEAN CORPUSCULAR VOLUME 78.1 fL (73.0-96.2); PLATELET COUNT (AUTO) 595 K/uL (152-348)
[2022-06-02 08:05] LABS: CREATININE 7.3 mg/dL (0.6-1.3); POTASSIUM 4.3 mmol/L (3.5-5.1)
[2022-06-02 08:18] LABS: PHOSPHOROUS 11.9 mg/dL (2.5-4.9)
[2022-06-02] MEDS: PANTOPRAZOLE ORAL SUSPENSION 40 MG SUSPDR.PKT GT SCH (08:51)
[2022-06-02] MEDS: NICOTINE 7 MG/24HR PATCH TD SCH (08:51)
[2022-06-02] MEDS: LIPASE/PROTEASE/AMYLASE 4200 UNITS CAPSULE.DR GT SCH ×3 (08:52→16:55)
[2022-06-02] MEDS: NUTRISOURCE FIBER 4 GM PACKET GT SCH ×3 (08:53→16:56)
[2022-06-02] MEDS: REMEDY ESSENTIAL ZINC PASTE 113 GM TP PRN (08:53)
[2022-06-02] MEDS: ACETAMINOPHEN 325 MG TABLET PO PRN (16:55)
[2022-06-02 20:00] VITALS: BP 102/69
[2022-06-02] MEDS: NEPRO 1000 ML GT PRN (21:18)
[2022-06-02] MEDS: TRAZODONE 100 MG TABLET GT SCH (21:18)
[2022-06-02] MEDS ORDERED: VANCOMYCIN IV 1,000 MG in IV DEXTROSE 5% 250 ML IV ONE (22:15)
[2022-06-03] VITALS: BP 121/81
[2022-06-03] MEDS ORDERED: VANCOMYCIN 1000 MG VIAL ONE (00:10)
[2022-06-03 04:00] VITALS: BP 116/76
[2022-06-03] MEDS: SEVELAMER CARBONATE 800 MG POWD.PACK GT SCH ×4 (06:38→21:22)
[2022-06-03] MEDS: PANTOPRAZOLE ORAL SUSPENSION 40 MG SUSPDR.PKT GT SCH (09:16)
[2022-06-03] MEDS: NICOTINE 7 MG/24HR PATCH TD SCH (09:16)
[2022-06-03] MEDS: LIPASE/PROTEASE/AMYLASE 4200 UNITS CAPSULE.DR GT SCH ×3 (09:18→17:00)
[2022-06-03] MEDS: REMEDY ESSENTIAL ZINC PASTE 113 GM TP PRN (09:19)
[2022-06-03] MEDS: NUTRISOURCE FIBER 4 GM PACKET GT SCH ×3 (09:19→17:00)
[2022-06-03] MEDS ORDERED: VANCOMYCIN IV 500 MG in IV DEXTROSE 5% 100 ML IV PRN (11:30)
[2022-06-03 11:32] VITALS: BP 102/64
[2022-06-03 15:55] VITALS: BP 117/74
[2022-06-03 20:00] VITALS: BP 138/83
[2022-06-03] MEDS: TRAZODONE 100 MG TABLET GT SCH (21:26)
[2022-06-04] MEDS: HYDROCODONE/APAP 10-325 MG TABLET PO PRN (02:45)
[2022-06-04] MEDS: MAGNESIUM HYDROXIDE 30 ML LIQUID UDC PO PRN (03:23)
[2022-06-04 04:00] VITALS: BP 111/71
[2022-06-04 07:02] LABS: HEMATOCRIT 23.7 % (36.7-47.1); MEAN CORPUSCULAR VOLUME 77.6 fL (73.0-96.2); PLATELET COUNT (AUTO) 572 K/uL (152-348)
[2022-06-04] MEDS: NEPRO 1000 ML GT PRN (07:06)
[2022-06-04 07:08] LABS: CREATININE 7.1 mg/dL (0.6-1.3); MAGNESIUM 2.9 mg/dL (1.8-2.4); PHOSPHOROUS 7.2 mg/dL (2.5-4.9); POTASSIUM 4.3 mmol/L (3.5-5.1)
[2022-06-04] MEDS: NUTRISOURCE FIBER 4 GM PACKET GT SCH ×3 (09:10→16:36)
[2022-06-04] MEDS: SEVELAMER CARBONATE 800 MG POWD.PACK GT SCH ×4 (09:10→21:46)
[2022-06-04] MEDS: PANTOPRAZOLE ORAL SUSPENSION 40 MG SUSPDR.PKT GT SCH (09:10)
[2022-06-04] MEDS: NICOTINE 7 MG/24HR PATCH TD SCH (09:10)
[2022-06-04] MEDS: LIPASE/PROTEASE/AMYLASE 4200 UNITS CAPSULE.DR GT SCH ×3 (09:10→16:35)
[2022-06-04 11:30] VITALS: BP 124/79
[2022-06-04] MEDS ORDERED: SORBITOL 70% SOLUTION 30 ML UDC PO ONE (12:45)
[2022-06-04] MEDS ORDERED: LACTULOSE 20 G/30 ML LIQUID UDC PO ONE (12:45)
[2022-06-04 16:59] VITALS: BP 129/81
[2022-06-04] MEDS: BISACODYL 10 MG SUPP.RECT RC PRN (18:04)
[2022-06-04 20:40] VITALS: BP 133/83
[2022-06-04] MEDS: TRAZODONE 100 MG TABLET GT SCH (21:45)
[2022-06-05 04:02] VITALS: BP 134/85
[2022-06-05 07:08] LABS: MAGNESIUM 3.4 mg/dL (1.8-2.4); PHOSPHOROUS 6.2 mg/dL (2.5-4.9); POTASSIUM 4.2 mmol/L (3.5-5.1)
[2022-06-05 07:29] LABS: HEMATOCRIT 24.3 % (36.7-47.1); MEAN CORPUSCULAR HEMOGLOBIN 24.9 uug (23.8-33.4); MEAN CORPUSCULAR VOLUME 78.2 fL (73.0-96.2); PLATELET COUNT (AUTO) 594 K/uL (152-348)
[2022-06-05 08:18] LABS: CREATININE 7.9 mg/dL (0.6-1.3)
[2022-06-05] MEDS: PANTOPRAZOLE ORAL SUSPENSION 40 MG SUSPDR.PKT GT SCH (09:17)
[2022-06-05] MEDS: NICOTINE 7 MG/24HR PATCH TD SCH (09:17)
[2022-06-05] MEDS: NUTRISOURCE FIBER 4 GM PACKET GT SCH ×3 (09:18→16:19)
[2022-06-05] MEDS: SEVELAMER CARBONATE 800 MG POWD.PACK GT SCH ×4 (09:18→21:10)
[2022-06-05] MEDS: LIPASE/PROTEASE/AMYLASE 4200 UNITS CAPSULE.DR GT SCH ×3 (09:18→16:13)
[2022-06-05 10:32] LABS: ABG HCO3 26.7 mmol/L; ABG PCO2 37.4 mmHg (35.0-45.0); ABG PH 7.472 (7.350-7.450); ABG PO2 62.1 mmHg (75.0-100.0); ABG SITE LEFT RADIAL; ABG TOTAL HEMOGLOBIN 9.3 G/dL (13.5-18.0); COHb 0.2 % (0.5-1.5); MetHb 0.2 % (0.0-1.5); O2Hb 91.8 % (94.0-97.0); VENT MODE ROOM AIR
[2022-06-05 11:09] VITALS: BP 126/74
[2022-06-05 16:24] VITALS: BP 119/78
[2022-06-05 20:22] VITALS: BP 138/87
[2022-06-05] MEDS: TRAZODONE 100 MG TABLET GT SCH (21:09)
[2022-06-06] MEDS: MAGNESIUM HYDROXIDE 30 ML LIQUID UDC PO PRN ×2 (00:58→20:42)
[2022-06-06 04:23] VITALS: BP 132/80
[2022-06-06 07:20] LABS: HEMATOCRIT 23.4 % (36.7-47.1); MEAN CORPUSCULAR HEMOGLOBIN 24.9 uug (23.8-33.4); MEAN CORPUSCULAR VOLUME 77.1 fL (73.0-96.2); PLATELET COUNT (AUTO) 562 K/uL (152-348)
[2022-06-06 07:22] LABS: MAGNESIUM 3.5 mg/dL (1.8-2.4); PHOSPHOROUS 5.5 mg/dL (2.5-4.9); POTASSIUM 4.3 mmol/L (3.5-5.1)
[2022-06-06 07:57] LABS: CREATININE 7.8 mg/dL (0.6-1.3)
[2022-06-06] MEDS: SEVELAMER CARBONATE 800 MG POWD.PACK GT SCH ×4 (09:34→20:43)
[2022-06-06] MEDS: LIPASE/PROTEASE/AMYLASE 4200 UNITS CAPSULE.DR GT SCH ×3 (09:34→16:27)
[2022-06-06] MEDS: NICOTINE 7 MG/24HR PATCH TD SCH (09:34)
[2022-06-06] MEDS: PANTOPRAZOLE ORAL SUSPENSION 40 MG SUSPDR.PKT GT SCH (09:34)
[2022-06-06] MEDS: NUTRISOURCE FIBER 4 GM PACKET GT SCH ×3 (09:35→16:27)
[2022-06-06 11:55] VITALS: BP 135/85
[2022-06-06] MEDS: MIRALAX 17 GM POWD.PACK PO SCH (12:15)
[2022-06-06] MEDS: BISACODYL 10 MG SUPP.RECT RC PRN (12:16)
[2022-06-06 15:18] VITALS: BP 136/94
[2022-06-06 20:00] VITALS: BP 146/88
[2022-06-06] MEDS: ACETAMINOPHEN 325 MG TABLET PO PRN (20:42)
[2022-06-06] MEDS: SENNOSIDES 1 TABLET PO SCH (20:43)
[2022-06-06] MEDS: TRAZODONE 100 MG TABLET GT SCH (20:43)
[2022-06-07 04:00] VITALS: BP 115/73
[2022-06-07] MEDS ORDERED: BUPIVACAINE 0.25% 30 ML VIAL ONE ×2 (06:15→07:01)
[2022-06-07] MEDS ORDERED: HEPARIN SODIUM,PORCINE 1,000 UNITS/ML VIAL ONE ×3 (06:15→08:53)
[2022-06-07] MEDS ORDERED: HEPARIN/NS 500 ML ONE (06:15)
[2022-06-07] MEDS ORDERED: LIDOCAINE HCL 1% 20 ML VIAL ONE (06:15)
[2022-06-07 07:03] LABS: HEMATOCRIT 24.5 % (36.7-47.1); MEAN CORPUSCULAR HEMOGLOBIN 24.5 uug (23.8-33.4); MEAN CORPUSCULAR VOLUME 77.2 fL (73.0-96.2); PLATELET COUNT (AUTO) 621 K/uL (152-348)
[2022-06-07 07:32] LABS: MAGNESIUM 3.8 mg/dL (1.8-2.4); PHOSPHOROUS 5.2 mg/dL (2.5-4.9); POTASSIUM 4.3 mmol/L (3.5-5.1)
[2022-06-07] MEDS ORDERED: PROPOFOL 200 MG/20 ML BOTTLE ONE (08:00)
[2022-06-07] MEDS: PANTOPRAZOLE ORAL SUSPENSION 40 MG SUSPDR.PKT GT SCH (08:29)
[2022-06-07] MEDS: SEVELAMER CARBONATE 800 MG POWD.PACK GT SCH ×4 (08:29→21:40)
[2022-06-07] MEDS: MIRALAX 17 GM POWD.PACK PO SCH (08:29)
[2022-06-07] MEDS: LIPASE/PROTEASE/AMYLASE 4200 UNITS CAPSULE.DR GT SCH ×3 (08:29→17:07)
[2022-06-07] MEDS: NUTRISOURCE FIBER 4 GM PACKET GT SCH ×3 (08:29→17:09)
[2022-06-07] MEDS: NICOTINE 7 MG/24HR PATCH TD SCH (10:55)
[2022-06-07 11:09] VITALS: BP 121/77
[2022-06-07 15:39] VITALS: BP 131/80
[2022-06-07 20:00] VITALS: BP 138/84
[2022-06-07] MEDS: SENNOSIDES 1 TABLET PO SCH (21:40)
[2022-06-07] MEDS: TRAZODONE 100 MG TABLET GT SCH (21:40)
[2022-06-07] MEDS: NEPRO 1000 ML GT PRN (22:21)
[2022-06-07] MEDS: HYDROCODONE/APAP 10-325 MG TABLET PO PRN (23:47)
[2022-06-08 04:00] VITALS: BP 111/71
[2022-06-08 07:48] LABS: CREATININE 5.2 mg/dL (0.6-1.3); MAGNESIUM 3.2 mg/dL (1.8-2.4); PHOSPHOROUS 4.1 mg/dL (2.5-4.9); POTASSIUM 4.2 mmol/L (3.5-5.1)
[2022-06-08 08:00] VITALS: BP 112/60
[2022-06-08 08:08] LABS: HEMATOCRIT 22.7 % (36.7-47.1); MEAN CORPUSCULAR HEMOGLOBIN 25.4 uug (23.8-33.4); MEAN CORPUSCULAR VOLUME 77.9 fL (73.0-96.2); PLATELET COUNT (AUTO) 563 K/uL (152-348)
[2022-06-08] MEDS: NUTRISOURCE FIBER 4 GM PACKET GT SCH ×3 (09:31→17:05)
[2022-06-08] MEDS: SEVELAMER CARBONATE 800 MG POWD.PACK GT SCH ×4 (09:31→20:23)
[2022-06-08] MEDS: LIPASE/PROTEASE/AMYLASE 4200 UNITS CAPSULE.DR GT SCH ×3 (09:31→17:05)
[2022-06-08] MEDS: MIRALAX 17 GM POWD.PACK PO SCH (09:31)
[2022-06-08] MEDS: NICOTINE 7 MG/24HR PATCH TD SCH (09:31)
[2022-06-08] MEDS: PANTOPRAZOLE ORAL SUSPENSION 40 MG SUSPDR.PKT GT SCH (09:31)
[2022-06-08] MEDS: ONDANSETRON 4 MG/2 ML VIAL IV PRN (09:32)
[2022-06-08] MEDS: HYDROCODONE/APAP 10-325 MG TABLET PO PRN (09:32)
[2022-06-08 11:08] VITALS: BP 127/77
[2022-06-08] MEDS ORDERED: VANCOMYCIN IV 500 MG in IV DEXTROSE 5% 100 ML IV ONE (12:00)
[2022-06-08] MEDS ORDERED: TRAZ-257 GT (13:37)
[2022-06-08] MEDS ORDERED: SENN-175 PO (13:37)
[2022-06-08] MEDS ORDERED: Wheat Dextrin GT (13:37)
[2022-06-08] MEDS ORDERED: RXVAN XX (13:37)
[2022-06-08] MEDS ORDERED: Nepro GT (13:37)
[2022-06-08] MEDS ORDERED: BISA10SU12 RC (13:37)
[2022-06-08] MEDS ORDERED: SIME80TA16 NG (13:37)
[2022-06-08] MEDS ORDERED: LIPA1CAP27 GT (13:37)
[2022-06-08] MEDS ORDERED: POLY17PO4 PO (13:37)
[2022-06-08] MEDS ORDERED: SEVE0.8P GT (13:37)
[2022-06-08] MEDS ORDERED: HYDR-3980 PO (13:37)
[2022-06-08] MEDS ORDERED: NICO1PAT46 TD (13:37)
[2022-06-08] MEDS ORDERED: PANT40SU2 GT (13:37)
[2022-06-08 13:41] LABS: BASOPHILS % (MANUAL) 0 % (0-2); EOSINOPHILS % (MANUAL) 2 % (0-8); LYMPHOCYTES % (MANUAL) 10 % (20-40); MONOCYTES % (MANUAL) 7 % (2-10); NEUTROPHILS % (MANUAL) 81 % (42-75)
[2022-06-08 15:02] VITALS: BP 134/85
[2022-06-08 20:21] VITALS: BP 136/87
[2022-06-08] MEDS: SENNOSIDES 1 TABLET PO SCH (20:23)
[2022-06-08] MEDS: TRAZODONE 100 MG TABLET GT SCH (20:23)
[2022-06-08] MEDS: BISACODYL 10 MG SUPP.RECT RC PRN (20:38)
== END 2022-06-09 02:29 | DRG 871 ==
LOC: ER 08:14 → TELE-TD3 11:09 → CCU 05-14 15:13 → TELE3 05-27 15:46 → MEDSURG3 06-04 09:55
PROVIDERS: ADMIT Nurse Practitioner Acute Care; ATTEND Registered Nurse
PROC: 5A09457 Assistance with Respiratory Ventilation, 24-96 Consecutive Hours, Continuous Positive Airway Pressure (ICD-10-PCS; 2022-05-14)
PROC: 06HY33Z Insertion of Infusion Device into Lower Vein, Percutaneous Approach (ICD-10-PCS; 2022-05-15)
PROC: 5A1D70Z Performance of Urinary Filtration, Intermittent, Less than 6 Hours Per Day (ICD-10-PCS; 2022-05-15)
PROC: 5A1945Z Respiratory Ventilation, 24-96 Consecutive Hours (ICD-10-PCS; principal; 2022-05-16)
PROC: 0BH17EZ Insertion of Endotracheal Airway into Trachea, Via Natural or Artificial Opening (ICD-10-PCS; 2022-05-16)
PROC: 0DH63UZ Insertion of Feeding Device into Stomach, Percutaneous Approach (ICD-10-PCS; 2022-05-31)
PROC: 0JH63XZ Insertion of Tunneled Vascular Access Device into Chest Subcutaneous Tissue and Fascia, Percutaneous Approach (ICD-10-PCS; 2022-06-07)
PROC: 02HV33Z Insertion of Infusion Device into Superior Vena Cava, Percutaneous Approach (ICD-10-PCS; 2022-06-07)
PROC: B518YZA Fluoroscopy of Superior Vena Cava using Other Contrast, Guidance (ICD-10-PCS; 2022-06-07)
PROC: 06PYX3Z Removal of Infusion Device from Lower Vein, External Approach (ICD-10-PCS; 2022-06-07)
DX: A41.9 Sepsis, unspecified organism (principal); G92.8 Other toxic encephalopathy; J96.01 Acute respiratory failure with hypoxia; N17.0 Acute kidney failure with tubular necrosis; J15.6 Pneumonia due to other Gram-negative bacteria; I50.33 Acute on chronic diastolic (congestive) heart failure; I46.9 Cardiac arrest, cause unspecified; J15.9 Unspecified bacterial pneumonia; G93.1 Anoxic brain damage, not elsewhere classified; E87.20 Acidosis, unspecified; J44.1 Chronic obstructive pulmonary disease with (acute) exacerbation; J44.0 Chronic obstructive pulmonary disease with (acute) lower respiratory infection; E87.1 Hypo-osmolality and hyponatremia; N13.8 Other obstructive and reflux uropathy; I13.0 Hypertensive heart and chronic kidney disease with heart failure and stage 1 through stage 4 chronic kidney disease, or unspecified chronic kidney disease; E83.39 Other disorders of phosphorus metabolism; D75.839 Thrombocytosis, unspecified; I48.0 Paroxysmal atrial fibrillation; M19.90 Unspecified osteoarthritis, unspecified site; N18.9 Chronic kidney disease, unspecified; Z20.822 Contact with and (suspected) exposure to COVID-19; Z86.73 Personal history of transient ischemic attack (TIA), and cerebral infarction without residual deficits; Z86.79 Personal history of other diseases of the circulatory system; R13.10 Dysphagia, unspecified; I25.10 Atherosclerotic heart disease of native coronary artery without angina pectoris; F17.210 Nicotine dependence, cigarettes, uncomplicated; D69.6 Thrombocytopenia, unspecified; N40.0 Benign prostatic hyperplasia without lower urinary tract symptoms; Z71.6 Tobacco abuse counseling; N32.0 Bladder-neck obstruction; M75.100 Unspecified rotator cuff tear or rupture of unspecified shoulder, not specified as traumatic; K29.70 Gastritis, unspecified, without bleeding; M75.102 Unspecified rotator cuff tear or rupture of left shoulder, not specified as traumatic; M89.8X9 Other specified disorders of bone, unspecified site; D72.823 Leukemoid reaction; D64.9 Anemia, unspecified; B95.4 Other streptococcus as the cause of diseases classified elsewhere
CPT/HCPCS: 36415; 36600; 70030-TC; 70450; 70496; 70551; 71045; 71250; 71275; 73030; 73110; 74018; 76604; 76705; 76770; 78580; 82785; 82803; 83605; 83735; 83930; 84100; 84153; 84443; 84484; 85025; 85610; 85730; 86140; 86706; 86803; 87040; 87278; 87340; 87806; 90937; 93005; 93307; 94002; 94003; 94640; 94660; 94664; 99082-TC; A4649; A4663; A6209; A6213; A9150; A9540; C1750; C9113; G0378; J0171; J0282; J0360; J0456; J0690; J0692; J0885; J1644; J1940; J1956; J2405; J2930; J2997; J3370; J3490; J3590; J7040; J7050; P9047; Q0144; Q9967

== ENCOUNTER 2022-07-21 13:19 | Emergency (ER) | payer MEDICARE ==
[~2022-07-21] VITALS: Ht 167.6 cm; Wt 65.8 kg
[~2022-07-21 13:19] MED LIST: BISA10SU12 RC; FAMO-132 PO; HYDR-3980 PO; LIPA1CAP27 GT; NICO1PAT46 TD; Nepro GT; PANT40SU2 GT; POLY17PO4 PO; RXVAN XX; SENN-175 PO; SEVE0.8P GT; SIME80TA16 NG; TRAZ-257 GT; Wheat Dextrin GT
--- NOTE | 2022-07-21 14:02 | NUR ---
Pt seen by . Safety measures in place. Will continue to monitor.
[2022-07-21] MEDS ORDERED: METH4TAB3 PO (17:08)
[2022-07-21] MEDS ORDERED: HYDR-3980 PO (17:08)
[2022-07-21] MEDS ORDERED: NAPR-1009 PO (17:08)
--- NOTE | 2022-07-21 17:46 | NUR ---
Patient discharged to home in stable condition. Written and verbal after care instructions given. Patient verbalizes understanding of instructions. Gave Patient CD containing CT-scan and X-ray. Stressed follow up or return to ER for worsening s/s.
[2022-07-21 17:47] VITALS: BP 133/91
== END 2022-07-21 17:47 | disposition home or self-care (01) ==
LOC: ER 13:22
DX: S46.012A Strain of muscle(s) and tendon(s) of the rotator cuff of left shoulder, initial encounter (principal); F17.210 Nicotine dependence, cigarettes, uncomplicated; Z79.899 Other long term (current) drug therapy; X58.XXXA Exposure to other specified factors, initial encounter; Y93.89 Activity, other specified; Y92.89 Other specified places as the place of occurrence of the external cause; Y99.8 Other external cause status
CPT/HCPCS: 73030; 73200; A4663